=== PATIENT | male | born 1985 | race Caucasian/White ===

== ENCOUNTER 2017-12-01 01:48 | Emergency (ER) | payer BC ==
[2017-12-01] MEDS ORDERED: HYDROcodone/ACETAMIN 5-325 MG* 1 TAB PO ONE (02:48)
[2017-12-01] MEDS ORDERED: Naproxen TAB* 250 MG PO ONE (02:48)
[2017-12-01] MEDS ORDERED: Cyclobenzaprine TAB* 10 MG PO ONE (02:48)
[2017-12-01 04:06] VITALS: BP 133/73
--- NOTE | 2017-12-01 06:01 | ED ---
Carolann Bentley Emily, scribed for Kwaku Cormier MD on 12/01/17 at 0256 . Back Pain - HPI Summary HPI Summary: This patient is a 32 year old M presenting to [facility] with a chief complaint of back pain that began status post fall at 1999 yesterday. Pt reports that he was up on a ladder, when the support buckled and he fell backwards. Pt reports stricking his lower back from several feet up against a work bench. Pt denies hitting his head and LOC. The patient rates the pain 5/10 in severity. Symptoms aggravated by nothing. Symptoms alleviated by nothing. Patient denies urinary symptoms, bowel symptoms, numbness, weakness, and tingling. 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 - History of Current Complaint Chief Complaint: EDBackInjuryPain Stated Complaint: FELL OFF LADDER Time Seen by Provider: 12/01/17 02:42 Hx Obtained From: Patient Onset/Duration: Sudden Onset, Lasting Hours, Still Present Onset/Duration: Started Hours Ago Timing: Constant Back Pain Location: Is Diffuse Severity Initially: Moderate Severity Currently: Moderate Pain Intensity: 5 Pain Scale Used: 0-10 Numeric Aggravating Symptom(s): Nothing Alleviating Symptom(s): Nothing Associated Signs And Symptoms: Positive: Other - Negative urinary symptoms, bowel symptoms, numbness, weakness, and tingling - Allergies/Home Medications Allergies/Adverse Reactions: Allergies Allergy/AdvReac Type Severity Reaction Status Date / Time No Known Allergies Allergy Verified 07/02/13 10:37 PMH/Surg Hx/FS Hx/Imm Hx Previously Healthy: Yes Opthamlomology History: Denies: Hx Legally Blind EENT History: Denies: Hx Deafness Infectious Disease History: No Infectious Disease History: Denies: Traveled Outside the [place] in Last 30 Days - Family History Known Family History: Positive: Other Family History: no cardiac-vascularproblems in family lineage - Social History Occupation: Employed Full-time Lives: Alone Alcohol Use: Weekly Substance Use Type: Reports: None Smoking Status (MU): Current Every Day Smoker Review of Systems Gastrointestinal: Negative Genitourinary: Negative Positive: Other - Positive back pain Neurological: Other - Negative tingling Negative: Weakness, Syncope All Other Systems Reviewed And Are Negative: Yes Physical Exam - Summary Physical Exam Summary: Appearance: Well appearing, no pain distress Skin: warm, dry, reflects adequate perfusion, ecchymosis on left low lumbar, Head/face: normal Eyes: EOMI, AUTUMN ENT: normal Neck: supple, non-tender Respiratory: CTA, breath sounds present Cardiovascular: RRR, pulses symmetrical Abdomen: non-tender, soft Bowel Sounds: present Musculoskeletal: Low lumbar midline tenderness and muscular tenderness on both sides, Nml sensation in legs and saddle area. Nml reflexes and nml strength. Antalgic gait secondary to pain in back. Neuro: normal, sensory motor intact, A&Ox3 Triage Information Reviewed: Yes Vital Signs On Initial Exam: Initial Vitals Temp Pulse Resp BP Pulse Ox 98.7 F 50 16 149/89 97 12/01/17 01:52 12/01/17 01:52 12/01/17 01:52 12/01/17 01:52 12/01/17 01:52 Vital Signs Reviewed: Yes Diagnostics - Vital Signs Vital Signs Temp Pulse Resp BP Pulse Ox 12/01/17 01:52 98.7 F 50 16 149/89 97 - Laboratory Lab Statement: Any lab studies that have been ordered have been reviewed, and results considered in the medical decision making process. - CT Lumbar spine CT CT Interpretation Completed By: Radiologist - Lumbar spine CT reveals, per radiologist, no lumbar spine fracture. ED physician has reviewed this radiology report. Re-Evaluation - Re-Evaluation First Eval Re-Evaluation Time: 03:50 Change: Improved Comment: Pt reports symptoms improving. 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 Back Pain Course/Dx - Course Course Of Treatment: CT lumbar spine neg for fx. Tx with nsaid, opiate and muscle relaxer with some relief. Offered trigger point injection but refused. No radicular sx. No bowel/bladder dysfxn. 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 Tx symptomatically. - Diagnoses Differential Diagnosis/HQI/PQRI: Positive: Fracture, Herniated Disc, Strain, Sprain Provider Diagnoses: Lumbar contusion, Lumbar strain Discharge - Sign-Out/Discharge Documenting (check all that apply): Discharge - Discharge Plan Condition: Improved Disposition: HOME Prescriptions: Cyclobenzaprine TAB* [Flexeril 10 MG TAB*] 10 mg PO TID PRN #10 tab PRN Reason: muscle pain/spasm Patient Education Materials: Contusion in Adults (ED), Lower Back Exercises (ED ) Referrals: Jeanette Rodriges [Primary Care Provider] - Additional Instructions: Ice, massage, range of motion exercises and Aleve or Ibuprofen. Return if worse, numbness/weakness in legs, trouble with bowel or bladder control, or other concerns. The documentation as recorded by the Carolann dempsey Emily accurately reflects the service I personally performed and the decisions made by , Kwaku Cormier MD.
--- NOTE | 2017-12-01 07:59 | RAD ---
HISTORY: Fall, diffuse low back pain, midline tenderness COMPARISONS: None TECHNIQUE: Multiple contiguous axial CT scans were obtained of the lumbar spine without intravenous contrast, with coronal and sagittal multiplanar reformations. FINDINGS: SPINAL CANAL: Evaluation of the central canal is limited on CT technique; however, there is no obvious canalicular mass or epidural hemorrhage. ALIGNMENT: There is straightening of the lumbar lordosis. VERTEBRAL BODIES: The vertebral bodies are preserved in height. The bones are normal in attenuation. JOINTS: There is no subluxation or dislocation. MUSCULATURE: Normal INTERVERTEBRAL DISCS: There is mild diffuse loss of intervertebral disc height throughout the spine. AXIAL IMAGES: T12-L1: There is no osseous neural foraminal narrowing or central canal stenosis. L1-L2: There is no osseous neural foraminal narrowing or central canal stenosis. L2-L3: There is no osseous neural foraminal narrowing or central canal stenosis. L3-L4: There is no osseous neural foraminal narrowing or central canal stenosis. L4-L5: There is no osseous neural foraminal narrowing or central canal stenosis. L5-S1: There is no osseous neural foraminal narrowing or central canal stenosis. SOFT TISSUES: The visualized soft tissues of the abdomen are unremarkable. OTHER: None IMPRESSION: STRAIGHTENING OF THE LUMBAR LORDOSIS. NO ACUTE OSSEOUS INJURY TO THE LUMBAR SPINE.
== END 2017-12-01 04:06 | disposition home or self-care (01) ==
LOC: ED 01:48
DX: S39.012A Strain of muscle, fascia and tendon of lower back, initial encounter (principal); S30.0XXA Contusion of lower back and pelvis, initial encounter; W19.XXXA Unspecified fall, initial encounter; Y92.9 Unspecified place or not applicable
CPT/HCPCS: 72131; 99283; A9270-GY